=== PATIENT | female | born 1980 | race Caucasian/White ===

== ENCOUNTER 2017-05-15 16:15 | Emergency (ER) | payer MEDICAID ==
[~2017-05-15] VITALS: Ht 175.3 cm; Wt 54.5 kg
[~2017-05-15 16:15] MED LIST: CLIN-80 PO; IBUP-1985 PO
[2017-05-15] MEDS ORDERED: proparacaine 0.5% ophthalmic drops 15ml RIGHTEYE ONE (17:35)
[2017-05-15] MEDS ORDERED: diazepam 5mg tablet PO ONE (17:35)
[2017-05-15] MEDS ORDERED: ciprofloxacin 0.3% 5ml ophthalmic solution RIGHTEYE ONE (17:35)
[2017-05-15] MEDS ORDERED: HYDROcodone/acetaminophen 10/325mg tab PO ONE (17:35)
[2017-05-15] MEDS ORDERED: benoxinate/fluorescein ophth drops 5ml bottle RIGHTEYE ONE (18:35)
[2017-05-15] MEDS ORDERED: fluoroscein sod 10% (100mg/ml) 5ml vial IJ ONE (18:35)
[2017-05-15] MEDS ORDERED: CIPR2.5D18 RIGHTEYE (19:14)
[2017-05-15] MEDS ORDERED: HYDR-569 PO (19:14)
[2017-05-15] MEDS ORDERED: ERYT1OIN6 RIGHTEYE (19:14)
[2017-05-15] MEDS ORDERED: DIAZ2TAB PO (19:14)
[2017-05-15] MEDS ORDERED: erythromycin ophthalmic ointment 1gm tube RIGHTEYE ONE (19:15)
[2017-05-15 19:48] VITALS: BP 131/85
== END 2017-05-15 19:49 | disposition home or self-care (01) ==
LOC: ER 16:16
DX: S05.01XA Injury of conjunctiva and corneal abrasion without foreign body, right eye, initial encounter (principal); F17.200 Nicotine dependence, unspecified, uncomplicated; F15.10 Other stimulant abuse, uncomplicated; Z79.899 Other long term (current) drug therapy; X58.XXXA Exposure to other specified factors, initial encounter; Y93.89 Activity, other specified; Y92.89 Other specified places as the place of occurrence of the external cause; Y99.8 Other external cause status
CPT/HCPCS: 99284; J7030

== ENCOUNTER 2018-01-12 14:05 | Emergency (ER) | payer MEDICAID ==
[~2018-01-12] VITALS: Ht 175.3 cm; Wt 54.5 kg
[~2018-01-12 14:05] MED LIST changes: +CIPR2.5D18 RIGHTEYE; -CLIN-80 PO; +CLIN300C85 PO; +DIAZ2TAB PO; +HYDR-4383 PO
[2018-01-12] MEDS ORDERED: normal saline 1000ML IV soln IVB ONE ×2 (14:45→14:50)
[2018-01-12] MEDS ORDERED: ondansetron/PF 4mg/2ml inj IV ONE (14:45)
[2018-01-12] MEDS ORDERED: ketorolac trometh. 30mg/ml inj. IV ONE (14:45)
[2018-01-12 14:59] LABS: BASOPHILS % (AUTO) 0.3 % (0-1); EOSINOPHILS # (AUTO) 0.3 X10'3 (0-0.9); EOSINOPHILS % (AUTO) 1.9 % (0-6); HEMATOCRIT 43.1 % (35.0-45.0); HEMOGLOBIN 14.6 g/dl (12.0-16.0); LYMPHOCYTES # (AUTO) 1.9 X10'3 (1.1-4.8); LYMPHOCYTES % (AUTO) 11.1 % (21-51); MEAN CORPUSCULAR HEMOGLOBIN 30.9 PG (27.0-31.0); MEAN CORPUSCULAR VOLUME 90.7 FL (78-98); MEAN PLATELET VOLUME 6.8 FL (7.4-10.4); MONOCYTES # (AUTO) 0.7 X10'3 (0-0.9); MONOCYTES % (AUTO) 4.1 % (2-12); NEUTROPHILS # (AUTO) 14.5 X10'3 (1.8-7.7); NEUTROPHILS % (AUTO) 82.6 % (42-75); PLATELET COUNT 437 X10'3 (140-440); RED BLOOD COUNT 4.75 X10'6 (4.20-5.60); RED CELL DISTRIBUTION WIDTH 13.2 % (11.5-14.5); WHITE BLOOD COUNT 17.5 X10'3 (4.5-11.0)
[2018-01-12 15:15] LABS: ALANINE AMINOTRANSFERASE 17 U/L (12-78); ALBUMIN 3.4 G/DL (3.4-5.0); ALBUMIN/GLOBULIN RATIO 0.8 (1.1-1.5); ALKALINE PHOSPHATASE 79 IU/L (46-116); ANION GAP 4 (8-16); ASPARTATE AMINO TRANSFERASE 13 U/L (10-37); BILIRUBIN,TOTAL 0.6 MG/DL (0.1-1.0); BLOOD UREA NITROGEN 10 MG/DL (7-18); BUN/CREATININE RATIO 9.5 (6.6-38.0); CALCIUM 9.3 MG/DL (8.5-10.1); CHLORIDE 99 MMOL/L (99-107); CREATININE 1.05 MG/DL (0.40-0.90); GLUCOSE 102 MG/DL (70-104); POTASSIUM 3.9 MMOL/L (3.5-5.1); SODIUM 133 MMOL/L (135-145); TOTAL CARBON DIOXIDE 30.5 MMOL/L (24-32); TOTAL PROTEIN 7.6 G/DL (6.4-8.2); eGFR 59 ML/MIN
[2018-01-12 15:18] VITALS: BP 98/66
[2018-01-12] MEDS ORDERED: CefTRIAXone 2gm/D5W 50ml 50 ML IV ONE (15:20)
[2018-01-12] MEDS ORDERED: LEVO750T21 PO (16:53)
[2018-01-12] MEDS ORDERED: GUAI120L55 PO (16:53)
[2018-01-12] MEDS ORDERED: ROBCFL PO (16:53)
[2018-01-12 16:54] LABS: URINE HCG NEGATIVE (NEG)
[2018-01-12 16:58] LABS: CLARITY,URINE CLEAR (Clear); COLOR,URINE YELLOW (Yellow); GLUCOSE, URINE NEGATIVE (Neg); KETONES,URINE NEGATIVE (Neg); LEUKOCYTE ESTERASE ,URINE NEGATIVE (Neg); NITRITES, URINE NEGATIVE (Neg); OCCULT BLOOD,URINE NEGATIVE (Neg); PH,URINE 5.5 (4.8-8.0); PROTEIN,URINE 30 mg/dl (Neg); UROBILINOGEN,URINE 0.2 E.U/dL (0.2-1.0)
[2018-01-12 17:02] LABS: UA COLLECTION TYPE CLN CATCH MIDSTREAM
[2018-01-12 17:04] LABS: MUCUS STRANDS MANY /LPF (Neg); SQUAMOUS EPITHELIAL CELL,UR MANY /LPF (FEW)
[2018-01-12 17:06] LABS: BACTERIA,URINE 3+ /HPF (Neg); RBC,URINE NONE SEEN /HPF (0-2)
== END 2018-01-12 17:08 | disposition home or self-care (01) ==
LOC: ER 14:05
DX: J18.1 Lobar pneumonia, unspecified organism (principal); F15.90 Other stimulant use, unspecified, uncomplicated; Z79.899 Other long term (current) drug therapy
CPT/HCPCS: 36415; 71045; 80053; 81001; 81025; 83605; 85025; 87040; 96365; 96375; 99285; J0696; J1885; J2405

== ENCOUNTER 2018-12-09 23:31 | Emergency (ER) | payer MEDICAID ==
[~2018-12-09] VITALS: Ht 175.3 cm; Wt 56.0 kg
[~2018-12-09 23:31] MED LIST changes: +CLIN-96 PO; -CLIN300C85 PO; +GUAI120L55 PO
[2018-12-10] MEDS ORDERED: aspirin 325mg tablet PO ONE (00:25)
[2018-12-10] MEDS ORDERED: SUMAtriptan succ. 6 MG/0.5ml vial SQ ONE (00:25)
[2018-12-10] MEDS ORDERED: ketorolac trometh. 30mg/ml inj. IM ONE (00:25)
[2018-12-10] MEDS ORDERED: proCHLORperazine 10 MG/2 ml inj IM ONE (00:25)
[2018-12-10 00:56] VITALS: BP 136/86
== END 2018-12-10 00:57 | disposition home or self-care (01) ==
LOC: ER 23:32
DX: G43.909 Migraine, unspecified, not intractable, without status migrainosus (principal); B34.9 Viral infection, unspecified; F15.90 Other stimulant use, unspecified, uncomplicated; F10.99 Alcohol use, unspecified with unspecified alcohol-induced disorder; E86.0 Dehydration; Z79.899 Other long term (current) drug therapy; Z98.51 Tubal ligation status; Y90.9 Presence of alcohol in blood, level not specified
CPT/HCPCS: 96372; 99283; J0780; J1885; J3030

== ENCOUNTER 2018-12-15 13:15 | Emergency (ER) | payer MEDICAID ==
[~2018-12-15] VITALS: Ht 175.3 cm; Wt 63.9 kg
[2018-12-15 13:20] VITALS: BP 112/47
[2018-12-15 14:15] LABS: BASOPHILS % (AUTO) 0.6 % (0-1); EOSINOPHILS # (AUTO) 0.3 X10'3 (0-0.9); EOSINOPHILS % (AUTO) 3.1 % (0-6); HEMOGLOBIN 13.8 g/dl (12.0-16.0); LYMPHOCYTES # (AUTO) 2.7 X10'3 (1.1-4.8); LYMPHOCYTES % (AUTO) 32.7 % (21-51); MEAN CORPUSCULAR HEMOGLOBIN 31.2 PG (27.0-31.0); MEAN CORPUSCULAR HGB CONC 33.7 g/dL (33.0-36.5); MEAN CORPUSCULAR VOLUME 92.6 FL (78-98); MEAN PLATELET VOLUME 6.8 FL (7.4-10.4); MONOCYTES # (AUTO) 0.6 X10'3 (0-0.9); MONOCYTES % (AUTO) 7.4 % (2-12); NEUTROPHILS # (AUTO) 4.6 X10'3 (1.8-7.7); NEUTROPHILS % (AUTO) 56.2 % (42-75); PLATELET COUNT 415 X10'3 (140-440); RED BLOOD COUNT 4.42 X10'6 (4.20-5.60); RED CELL DISTRIBUTION WIDTH 12.9 % (11.5-14.5); WHITE BLOOD COUNT 8.1 X10'3 (4.5-11.0)
[2018-12-15 14:22] LABS: ALANINE AMINOTRANSFERASE 19 U/L (12-78); ALBUMIN 3.6 G/DL (3.4-5.0); ALBUMIN/GLOBULIN RATIO 1.1 (1.1-1.5); ALKALINE PHOSPHATASE 46 IU/L (46-116); ANION GAP 10 (8-16); ASPARTATE AMINO TRANSFERASE 12 U/L (10-37); BILIRUBIN,TOTAL 0.4 MG/DL (0.1-1.0); BLOOD UREA NITROGEN 11 MG/DL (7-18); BUN/CREATININE RATIO 12.9 (6.6-38.0); CALCIUM 8.4 MG/DL (8.5-10.1); CHLORIDE 107 MMOL/L (99-107); CREATININE 0.85 MG/DL (0.40-0.90); GLUCOSE 89 MG/DL (70-104); POTASSIUM 3.7 MMOL/L (3.5-5.1); SODIUM 144 MMOL/L (135-145); TOTAL PROTEIN 6.8 G/DL (6.4-8.2); eGFR 75 ML/MIN
[2018-12-15 14:24] LABS: PARTIAL THROMBOPLASTIN TIME 27 SECONDS (22-32)
--- NOTE | 2018-12-15 14:47 | NUR ---
pt states im nausea, headache, upset stomach metal taste in mouth.lethargic past 2 weeks
[2018-12-15] MEDS ORDERED: diphenhydrAMINE 25mg capsule PO ONE (15:00)
[2018-12-15] MEDS ORDERED: proCHLORperazine 10 MG/2 ml inj IM ONE (15:00)
[2018-12-15] MEDS ORDERED: ketorolac tromethamine 15mg/ml inj. IM ONE (15:00)
--- NOTE | 2018-12-15 15:10 | NUR ---
PT REACTED ANGRY WHEN ASKED ABOU THE PAIN .PT FAMILY SAID SHE IS UPSET BECAUSE SHE IS HAVING THIS PAIN FROM WEEKS,PT DECLINED TO TAKE ANY IM INJ ALSO REFUSED THE TRETMENT AND SAID SHE WNT TO LEAVE."I WANT TO GO HOME ".SPOKE TO TOYIN ROGERS PER TOYIN THATS THE BEST TREATMENT FOR HER IF SHE DO NOT WANT 2 IM SHOTS THEN SHE CAN TAKE TORODOL AND BENEDRYL PO IF NOT THEN SHE CAN GO HOME WITH D/C INSTRUCTION,SPOKE TO PT SHE REFUSED THE TREATMENT READY TO LEAVE,D/C PAPERWORK GIVEN SHE REFUSED TO SIGN.
== END 2018-12-15 15:18 | disposition home or self-care (01) ==
LOC: ER 13:16
DX: G43.909 Migraine, unspecified, not intractable, without status migrainosus (principal); F15.90 Other stimulant use, unspecified, uncomplicated
CPT/HCPCS: 36415; 80053; 83605; 84145; 85025; 85610; 85730; 87040; 93005; 99284